=== PATIENT | male | born 1990 | race African-American/Black ===

== ENCOUNTER 2018-01-05 21:19 | Emergency (ER) | payer OTHER ==
[~2018-01-05] VITALS: Ht 170.2 cm; Wt 76.6 kg
[~2018-01-05 21:19] MED LIST: NAPROXEN500 MG PO; NORCO 5/3251 TABLET PO
[2018-01-05] MEDS ORDERED: NAPROSYN500 MG PO (22:35)
[2018-01-05] MEDS ORDERED: ROBAXIN750 MG PO (22:35)
[2018-01-05 22:52] VITALS: BP 120/75
== END 2018-01-05 22:55 | disposition home or self-care (01) ==
LOC: EME 21:19
DX: M54.5 Low back pain (principal); M41.9 Scoliosis, unspecified
CPT/HCPCS: 99281; 99283